=== PATIENT | female | born 1955 | race Caucasian/White ===

== ENCOUNTER 2018-09-04 09:35 | Emergency (ER) | payer OTHER ==
[2018-09-04 09:54] VITALS: BP 141/72
[2018-09-04] MEDS ORDERED: Ondansetron ODT TAB* 4 MG PO ONE (10:01)
[2018-09-04] MEDS ORDERED: Meclizine TAB* 12.5 MG PO ONE (11:14)
--- NOTE | 2018-09-04 12:19 | UC ---
Dizzy HPI HPI Summary: Ms. Centeno has had 3 days of a whirling dizziness. It seemed a little better yesterday but is back in full force today. She complains that the room spins around. She has trouble walking but there is no specific listing. The first day she had a loud tinnitus but that is gone. She denies headache trouble with vision or speech. - History Of Current Complaint Chief Complaint: UCEar Stated Complaint: COUGH,CONGESTION,DIZZINESS Time Seen by Provider: 09/04/18 09:57 Hx Obtained From: Patient, Family/Tower Attendant Onset/Duration: Sudden Onset, Still Present Timing: Constant Severity Initially: Moderate Severity Currently: Moderate Pain Intensity: 3 Character: Room Spinning Aggravating Factor(s): Position Change, Change In Head Position Alleviating Factor(s): Nothing Associated Signs And Symptoms: Positive: Nausea, Vomiting Related History: Similar Episode/Dx as - inner ear problem - Risk Factors CVA Risk Factor: Hyperlipidemia - Allergies/Home Medications Allergies/Adverse Reactions: Allergies Allergy/AdvReac Type Severity Reaction Status Date / Time diphenhydramine Allergy Tachycardia Verified 09/04/18 11:28 [From Benadryl] Penicillins Allergy Unknown Verified 09/04/18 11:28 Reaction Details Home Medications: Home Medications Atorvastatin* [Lipitor*] 20 mg PO DAILY 09/04/18 [History Confirmed 09/04/18] Irbesartan 150 mg PO DAILY 09/04/18 [History Confirmed 09/04/18] PMH/Surg Hx/FS Hx/Imm Hx Previously Healthy: Yes - Surgical History Surgical History: Yes Surgery Procedure, Year, and Place: shoulder. back. knee. Tonsilectomy - Social History Alcohol Use: None Substance Use Type: None Smoking Status (MU): Never Smoked Tobacco Review of Systems All Other Systems Reviewed And Are Negative: Yes Constitutional: Positive: Negative Skin: Positive: Negative Eyes: Positive: Negative Cardiovascular: Positive: Negative. Negative: Palpitations Neurological: Positive: Negative. Negative: Headache Physical Exam - Summary Physical Exam Summary: She was nontoxic in appearance but obviously uncomfortable with frequent retching. Her vital signs are stable. Triage Information Reviewed: Yes Appearance: Obese Vital Signs: Initial Vital Signs Temp 98.7 F 09/04/18 09:48 Pulse 67 09/04/18 09:48 Resp 22 02/28/19 09:48 BP 141/72 09/04/18 09:48 Pulse Ox 98 09/04/18 09:48 Vital Signs Reviewed: Yes Eye Exam: Normal - mild horizontal nystagmus to the left ENT Exam: Normal ENT: Positive: TMs normal. Negative: TM bulging, TM dull, TM red Neck exam: Normal Respiratory Exam: Normal Cardiovascular Exam: Normal Abdominal Exam: Normal Neurological Exam: Normal Psychological Exam: Normal Skin Exam: Normal Dizzy Course/Dx - Course Course Of Treatment: Ms. Centeno has several aspects that make this vertigo sound like it's peripheral. She has tinnitus with it, she's had a fair amount of nausea with occasional vomiting and it is worse with movement. She was asymptomatic at first to evaluate in depth and was given Zofran ODT. When she reported some relief of her nausea she was given a meclizine. About 45 minutes later I reevaluated her. She had a very unsteady gait but was not listing to one side or the other. I was able to perform and [place]-Hall[place] maneuver and she had some mild nystagmus come out on the left but did not really reproduce her symptoms. She was feeling much improved at that point. I discussed with her the possibility of peripheral versus central vertigo. I offered her an MRI scan. She has had symptoms for 3 days. She is leaving for [place] tomorrow. She is not driving or flying but is being driven down. She would prefer to be treated symptomatically and will follow up with her PCP as soon as she gets back for further evaluation. - Differential Dx/Diagnosis Provider Diagnosis: Vertigo Discharge - Sign-Out/Discharge Documenting (check all that apply): Patient Departure All imaging exams completed and their final reports reviewed: Yes - Discharge Plan Condition: Stable Disposition: HOME Patient Education Materials: Vertigo (ED) Referrals: No Primary Care Phys,NOPCP [Primary Care Provider] - - Billing Disposition and Condition Condition: STABLE Disposition: Home
== END 2018-09-04 12:30 | disposition home or self-care (01) ==
LOC: UCCORT 09:35
DX: R42 Dizziness and giddiness (principal); H93.19 Tinnitus, unspecified ear; R11.2 Nausea with vomiting, unspecified; R26.81 Unsteadiness on feet; H55.00 Unspecified nystagmus; R05 Cough; R09.81 Nasal congestion; E66.9 Obesity, unspecified; Z88.8 Allergy status to other drugs, medicaments and biological substances; Z88.0 Allergy status to penicillin
CPT/HCPCS: 99202; A9270-GY; G0463